=== PATIENT | female | born 1970 | race Caucasian/White ===

== ENCOUNTER 2025-02-18 14:22 | Emergency (ER) | payer OTHER, SELFPAY ==
[2025-02-18 14:30] VITALS: BP 123/86
--- NOTE | 2025-02-18 14:39 | ED.GENMED ---
History of Present Illness
General
Chief Complaint: Foreign Body Ingestion
Source: patient
Exam Limitations: none
Time Seen by Provider: 02/18/25 14:36
History of Present Illness
History of Present Illness:
See MDM
Past History
Past History
ED Past Medical History: None
ED Past Surgical History: Gynecological (Leep procedure for cervical dysplasia)
Social History
Tobacco: Smoker
Alcohol: None
Living: with family
Employment: Not employed (Homemaker)
Family History
Family History: Other (Noncontributory)
Phy Exam
Physical Exam
Physical Exam:
See MDM
Course
Orders/Labs/Results
Orders:
Orders
02/18/25 14:39
CR Chest - 2 Views Urgent
Comment: accidentally swallowed dental bridge
Reason For Exam: chest discomfot
02/18/25 15:52
CT Chest/abd Wo Iv Cont Urgent
Comment: COMBINED ORDERS
Reason For Exam: swallowed dental bridge
Consult Gastroenterology [GASTROINTESTINAL CONSULT] Urgent
Consulting Provider: Amarilis Gustafson
Was physician already notified: Yes
02/18/25 16:52
Viscous Lidocaine 2% [Xylocaine Viscous Cup] 15 ml PO ONCE ONE
Vital Signs
Initial and Last Documented VS:
Initial Vital Signs
Temp Pulse Resp BP Pulse Ox
98.4 F 85 18 123/86 97
02/18/25 14:30 02/18/25 14:30 02/18/25 14:30 02/18/25 14:30 02/18/25 14:30
Last Documented Vital Signs
Temp Pulse Resp BP Pulse Ox
98.4 F 85 18 123/86 97
02/18/25 14:30 02/18/25 14:30 02/18/25 14:30 02/18/25 14:30 02/18/25 14:42
MDM/Problems Addressed
Differential Diagnosis Includes:
Note:
CHIEF COMPLAINT(S)
Ingestion of dental prosthetic device (temporary bridge).
HISTORY OF PRESENT ILLNESS
The patient is a 55-year-old female with a dental history significant for recent temporary bridge placement in the context of ongoing dental implants. The patient reports accidental ingestion of the temporary bridge while eating a bagel. The event
occurred when biting into the bagel led to the dislodgement of the bridge, and the patient inadvertently swallowed it. The patient expressed concern about the potential passage of the object through her gastrointestinal system but is asymptomatic at
present. She has an upcoming social commitment and seeks guidance on management for the swallowed prosthetic.
PHYSICAL EXAM
General: Alert, no acute distress.
Skin: Warm, dry.
Head: Normocephalic, atraumatic
Neck: Appears supple, trachea midline.
Eyes, Ears, Nose, Mouth, and Throat: Moist mucous membranes. Posterior pharynx clear
Cardiovascular: No signs of cyanosis
Respiratory: Respirations are non-labored.
Abdomen: Non-distended
Musculoskeletal: No deformities
Neurological: No focal neurological deficit observed.
Psychiatric: Cooperative, appropriate mood and affect.
PLAN
Perform an X-ray to determine the position of the ingested dental bridge and discuss management options with the Gastroenterology team.
DIFFERENTIAL DIAGNOSIS
The Differential Diagnosis includes, in no particular order and is not limited to:
- Esophageal foreign body
- Gastric foreign body
- Intestinal obstruction
SUMMARY OF ENCOUNTER
The patient presented to the emergency department after accidentally swallowing a temporary dental bridge. After discussion, it was determined that an X-ray will be performed to ascertain the location of the foreign body within the gastrointestinal
tract. Gastroenterology will be consulted to decide whether an intervention is necessary to retrieve the prosthetic device.
DISPOSITION
Pending further evaluation and guidance from Gastroenterology.
PATIENT EDUCATION AND COUNSELING
The patient was informed about the X-ray procedure and the potential need for further intervention depending on the results.
MEDICAL DECISION MAKING
-Complexity of Data Reviewed: Chronic conditions affecting care include dental history with recent temporary bridge placement and ongoing dental implants.
-Data:
Category 1:
My independent interpretation of an X-ray will assess the location of the dental prosthetic.
Category 3:
Discussion of management with the Gastroenterology team anticipated after imaging results.
DIAGNOSIS
- Ingested foreign body (T18.1)
SUMMARY OF ENCOUNTER
The patient, a 55-year-old female, presented to the emergency department after accidentally swallowing a temporary dental bridge. Initial concerns included the possibility of a foreign body in the esophagus. A CT scan revealed the presence of dental
bridge fragments in the stomach, with no evidence of esophageal obstruction. It is presumed that the patient ingested fragments from a broken dental bridge. Gastroenterology indicated that endoscopy is not required. The patient was treated with
viscous lidocaine for symptoms attributed to a presumed esophageal abrasion.
DISPOSITION
Pending further evaluation and guidance from Gastroenterology.
ASSESSMENT
Ingested foreign body without esophageal obstruction, likely causing localized esophageal irritation.
EMERGENCY TREATMENTS ADMINISTERED
Viscous lidocaine was administered for symptomatic relief of esophageal irritation.
MANAGEMENT OF THE PATIENTS CARE WAS DISCUSSED WITH
The Gastroenterology team indicated that endoscopy was not needed based on the imaging results.
REASSESSMENT
On reassessment, the patient reported feeling much better after receiving viscous lidocaine.
PLAN
Monitor the patient for any developing symptoms or complications related to the ingested foreign body. Plan for watchful waiting to see if the fragments pass naturally, as advised by Gastroenterology.
INDEPENDENT REVIEW OF LABS AND INTERPRETATION OF TESTS
- My independent interpretation of the CT scan indicates foreign body fragments from the broken dental bridge are located in the stomach, without evidence of esophageal obstruction.
PATIENT EDUCATION AND COUNSELING
The patient was informed about the current location of the ingested dental bridge pieces and reassured that no endoscopy is needed at this time. They were advised to monitor for symptoms and seek further care if necessary.
FOLLOW-UP INSTRUCTIONS
Please follow up with primary care if any new symptoms develop.
MEDICAL DECISION MAKING
-Complexity of Data Reviewed: Chronic conditions affecting care include dental history with recent temporary bridge placement and ongoing dental implants. The Differential Diagnosis includes: esophageal foreign body, gastric foreign body, intestinal
obstruction.
-Data:
Category 1: My independent interpretation of a CT scan.
Category 3: Discussion of management with the Gastroenterology team regarding the necessity of endoscopy.
DIAGNOSIS
Ingested foreign body (T18.1).
*Pulse Oximetry
SaO2: 97
ED Attending Note
-
Portions of this chart may have been created with voice recognition software.� Occasional wrong word or��sound alike� substitutions may have occurred due to the inherent limitations of voice recognition software.
Discharge Plan
Departure
Patient Disposition: Home (Routine Discharge)
Date of Disposition: 02/18/25
Time of Disposition: 17:50
Patient with high blood pressure during this ER visit?: No
Discharge Problem:
Foreign body, swallowed
Instructions: Swallowed Objects, Adult (DC)
Referrals:
NONE,* [Family Provider, Internal Medicine]
Activity Restrictions/Additional Instructions:
Please return for any worsening symptoms.
You may return at any time if you have further concerns.
Please follow up with your doctor at the first available appointment, preferably this week.
Thank you for choosing [facility].
Interventions
Interventions:
*Risk Screen - Suicide Last Done: 02/18/25 14:31
*General Assessment Last Done: 02/18/25 14:37
DY-Qusdjv-Glmqjmesqh Assessment Last Done: 02/18/25 14:37
ED- Pulmonary Assessment Last Done: 02/18/25 14:37
ED-EENT Assessment Last Done: 02/18/25 14:37
Discharge Date and Time
Print Language: TANZANIAN
[2025-02-18] MEDS: XYLOCAINE VISCOUS CUP 15 ML PO (16:58)
== END 2025-02-18 18:23 | disposition home or self-care (01) ==
LOC: EMR 14:22
PROVIDERS: CONSULT PHYSICIAN Internal Medicine; EMERGENCY PHYSICIAN Student in an Organized Health Care Education/Training Program
DX: T18.2XXA Foreign body in stomach, initial encounter (principal); W44.8XXA Other foreign body entering into or through a natural orifice, initial encounter; F17.200 Nicotine dependence, unspecified, uncomplicated
CPT/HCPCS: 99284; 71046; 71250; 74150